=== PATIENT | female | born 1975 | race Caucasian/White ===

== ENCOUNTER 2022-12-28 05:54 | Day surgery (SDC) | payer MEDICAID, SELFPAY ==
[2022-12-28] VITALS (8 sets, daily range): BP systolic 110–141; BP diastolic 65–92; PULSE 70–86; RESP 16; TEMP 36.1–37.1; O2SAT 99–100; BMI 18.8
[2022-12-28] MEDS: Lactated Ringers 1,000 ML 15 ML IV (06:45)
--- NOTE | 2022-12-28 07:03 | HP.PCM_ITS ---
<Statement entered by Phyllis Kauffman MD - 12/28/22 07:10> I have personally performed a face to face assessment of the patient and have reviewed the JULIO CESAR Note. History and Physical Date of Admission: 12/28/22 The patient is examined and there are no changes from her exam and clearance from 12/21/22. Assessment & Plan Assessment/Plan (1) Panniculitis: (2) Localized adiposity: (3) Atrophic skin: PLAN: Plan Abdominal panniculus s/p massive weight loss--pt for panniculectomy.
[2022-12-28] MEDS: Cefazolin 2 GM in 0.9% Normal Saline (100mL Bag) 100 ML IV (07:50)
[2022-12-28] MEDS: Gentamicin 80 MG/2 ML Vial (08:15)
[2022-12-28] MEDS: Bupivacaine 0.25% 30 ML Vial (11:01)
--- NOTE | 2022-12-28 11:21 | DCINST_ITS ---
Discharge Instructions Diet Discharge Diet: No restrictions Activity Additional Activity Instructions:: Follow instructions given in the office. Keep your back elevated (recliner position) when laying down. Dressing / Incision Additional Dressing/Incision Instructions:: Leave the dressing in place until seen in the office. Follow Up Care Test Results: Test results from this visit will be discussed in further detail at your follow- up appointment, if applicable. Discharge Plan Admission Attending Provider: Phyllis Kauffman Primary Care Provider: TAMARA WILSON Discharge Orders/Prescriptions Prescriptions: No Action meloxicam 15 mg tablet 15 mg PO DAILY Patient Comments: take 1 tablet by mouth once daily sumatriptan succinate 6 mg/0.5 mL pen injector 6 mg subcut Q1-4H PRN (Reason: migraine headache) Patient Comments: inject 0.5 milliliters ( 6 milligrams ) subcutaneously AT ONSET O... (REFER TO PRESCRIPTION NOTES). topiramate [Trokendi XR] 100 mg capsule,extended release 24hr 100 mg PO QHS Ubrelvy 100 mg tablet 100 mg PO .q 2 hr PRN (Reason: migraine headache) Patient Comments: TAKE 1 TABLET BY MOUTH NEEDED FOR MIGRAINE, MAY REPEAT IN 2 HRS. NO MORE THAN 2 TABS DAILY gabapentin 300 mg capsule 300 mg PO QHS Patient Comments: TAKE 1-2 CAPSULES BY MOUTH DAILY AT BEDTIME Ajovy Autoinjector 225 mg/1.5 mL auto-injector 225 mg subcut .twice month Patient Comments: inject 1 AND 1/2 milliliter subcutaneously twice monthly cephalexin 500 mg capsule 500 mg PO BID Qty: 14 0RF Referrals / Follow Up: TAMARA WILSON [Other] Disposition Disposition (needs filled in before D/C Order can be placed): Home, Self Care
--- NOTE | 2022-12-28 11:31 | DCINST_ITS ---
Discharge Instructions Diet Discharge Diet: No restrictions Activity Additional Activity Instructions:: Follow instructions given in the office. Keep your back elevated (recliner position) when laying down. Dressing / Incision Additional Dressing/Incision Instructions:: Leave the dressing in place until seen in the office. Follow Up Care Test Results: Test results from this visit will be discussed in further detail at your follow- up appointment, if applicable. Discharge Plan Admission Attending Provider: Phyllis Kauffman Primary Care Provider: TAMARA WILSON Discharge Orders/Prescriptions Prescriptions: New fluconazole 150 mg tablet 150 mg PO DAILY Qty: 1 0RF Rx Instructions: administer on day 1 of therapy No Action meloxicam 15 mg tablet 15 mg PO DAILY Patient Comments: take 1 tablet by mouth once daily sumatriptan succinate 6 mg/0.5 mL pen injector 6 mg subcut Q1-4H PRN (Reason: migraine headache) Patient Comments: inject 0.5 milliliters ( 6 milligrams ) subcutaneously AT ONSET O... (REFER TO PRESCRIPTION NOTES). topiramate [Trokendi XR] 100 mg capsule,extended release 24hr 100 mg PO QHS Ubrelvy 100 mg tablet 100 mg PO .q 2 hr PRN (Reason: migraine headache) Patient Comments: TAKE 1 TABLET BY MOUTH NEEDED FOR MIGRAINE, MAY REPEAT IN 2 HRS. NO MORE THAN 2 TABS DAILY gabapentin 300 mg capsule 300 mg PO QHS Patient Comments: TAKE 1-2 CAPSULES BY MOUTH DAILY AT BEDTIME Ajovy Autoinjector 225 mg/1.5 mL auto-injector 225 mg subcut .twice month Patient Comments: inject 1 AND 1/2 milliliter subcutaneously twice monthly cephalexin 500 mg capsule 500 mg PO BID Qty: 14 0RF Referrals / Follow Up: TAMARA WILSON [Other] Disposition Disposition (needs filled in before D/C Order can be placed): Home, Self Care
--- NOTE | 2022-12-28 11:34 | OP.PCM_ITS ---
Problems Associated Problem List Diagnoses (1) Panniculitis: (2) Localized adiposity: (3) Atrophic skin: Report of Operation Date of Procedure: 12/28/22 Pre-Operative Diagnosis: Atrophic skin of abdomen, history panniculitis Post-Operative Diagnosis: Same Surgery/Procedure Performed:: Panniculectomy (1002 g) Surgeon: Phyllis Kauffman edi coordinator: VIRAJ PARADAtest facility engineer Type of Anesthesia: General Drains: none Estimated Blood Loss (mL): 50cc Description of Procedure: The procedure was reviewed with the patient prior to the surgery including the expected pre-, intra-, postoperative course. After obtaining informed consent, the patient is marked in the preop holding area. The patient was brought to the operating room and placed under general anesthesia in the supine position. Care was taken to pad all pressure points, insert a Saucedo catheter, warming blanket, and sequential compression stockings. The abdomen is prepped and draped in the usual sterile fashion. We initially make an incision along the premarked line and this is carried down through the subcutaneous tissue to the abdominal fascia. Dissection then continued cephalad to undermine the redundant skin. Careful hemostasis is performed with argon coagulation. Following this, the skin is demarcated for the amount for removal and this is in size. This is dissected from its attachments using argon coagulation. The excision is performed with the patient in a semi-Fowlers position in order to assure wound closure following the procedure. The wound is irrigated and checked for hemostasis which is controlled with cautery. The incision is then tacked together with skin clips. The wound is then closed in 3 layers using V-Loc suture in a running fashion. Skin edges are closed with a subcuticular suture. Revisions of redundant skin on the lateral aspect is performed as far as was accessible with her supine positioning. Following wound closure, the wound is dressed with Xeroform, ABDs, and a abdominal binder. She tolerated the procedure well and was taken to the recovery area in an awake and stable condition. Needle and sponge counts are correct. Complications none Admit VTE Documentation VTE Mechan Device Prophylaxis: SCD's
[2022-12-28] MEDS: Oxycodone/Apap 5/325 Tablet PO ×2 (12:52→15:04)
== END 2022-12-28 15:45 | disposition home or self-care (01) ==
LOC: SDC 05:56 → AC 05:57
PROVIDERS: Referring Provider Plastic Surgery; Visit Provider Plastic Surgery
PROC: 0JB80ZZ Excision of Abdomen Subcutaneous Tissue and Fascia, Open Approach (ICD-10-PCS; CPT 15830; principal; 2022-12-28 07:15)
DX: M79.3 Panniculitis, unspecified (principal); E65 Localized adiposity; L90.9 Atrophic disorder of skin, unspecified; Z98.84 Bariatric surgery status
CPT/HCPCS: 15830; 00802; J7120; J2405; Q9968